=== PATIENT | male | born 1975 | race Caucasian/White ===

== ENCOUNTER 2019-06-29 08:39 | Day surgery (SDC) | payer MEDICAID, SELFPAY ==
[2019-06-26 11:51] VITALS: BMI 36.0
[2019-06-29] VITALS (11 sets, daily range): BP systolic 131–154; BP diastolic 79–97; PULSE 63–82; RESP 10–18; TEMP 36.4–37; O2SAT 92–98
--- NOTE | 2019-06-29 09:01 | PM.HPUD ---
H&P update H&P Update: DATE OF SURGERY/PROCEDURE: 06/29/19 DATE H&P PERFORMED: 06/23/19 H&P UPDATE INFORMATION: H&P completed within last 30 days and No changes to prior documentation PLANNED PROCEDURE: Operation Date: 06/29/19 09:55 Proposed Procedures p Umbilical Hernia Repair 66763 K42.9(Not Applicable) - Johnathon Gonzales MD Full H&P Perinent History: Medical/Surgical History: Medical History (Updated 06/23/19 @ 14:33 by Johnathon Gonzales MD) Chronic low back pain (Acute) COPD (chronic obstructive pulmonary disease) (Acute) Family History: Family History (Updated 06/23/19 @ 14:20 by Noemi Conner LPN) Other Diabetes Denies family history of Anesthesia complication Bleeding disorder Cancer Social History: Social History Smoking and tobacco status: current every day smoker Alcohol intake: current Alcohol intake frequency: few times a week Alcohol type: beer Substance/Drug Use: never Lives independently: Yes Marital status: Single Current occupational status: disabled
--- NOTE | 2019-06-29 09:05 | ANES.PREANES ---
Pre-Anesthetic Assessment Pre-Anesthetic Assessment: Height/Weight: Height 1.7 m Weight 104.326 kg Preop Diagnosis: Umbilical hernia Proposed Procedure: Operation Date: 06/29/19 09:55 Proposed Procedures p Umbilical Hernia Repair [id number] K42.9(Not Applicable) - Johnathon Gonzales MD Last intake: Intake Last Liquid Date 06/28/19 Last Liquid Time 23:00 Last Solid Date 06/28/19 Last Solid Time 23:00 Social: Social History: Alcohol and Tobacco Exam: Pre-Anes Outpt Exam: alert, oriented x 3, clear to auscultation bilaterally and regular rate & rhythm Airway: Submandibular: WNL Cervical ROM: WNL MP: 2 Dentition: Other (OK) History/ROS: No significant history except as noted Pulmonary: Pulmonary: COPD and RIOS CV/HEM: CV/HEM: None reported : : None reported Hepatic: Hepatic: None reported GI: GI: None reported Metabolic: Metabolic: None reported Musc/skel: Musc/skel: None reported Neuropsych: Neuropsych: None reported Anesthetic Plan: ASA status: II Anesthesia: Anesthesia Evaluation and General Risk of > 500 ml blood loss (7ml/kg in children): No PFSH Anesthesia PFSH: Medical History Chronic low back pain (Acute) COPD (chronic obstructive pulmonary disease) (Acute) Surgical History H/O circumcision (Acute) History of removal of cyst (Acute) Scalp Family History Other Diabetes Denies family history of Anesthesia complication Bleeding disorder Cancer Social History Smoking and tobacco status: current every day smoker Alcohol intake: current Alcohol intake frequency: few times a week Alcohol type: beer Substance/Drug Use: never Lives independently: Yes Marital status: Single Current occupational status: disabled Data Anesthesia Cardiac Studies: No Data to Display
[2019-06-29] MEDS: sodium chloride 0.9% 1,000 ML 30 ML IV (09:22)
--- NOTE | 2019-06-29 10:54 | P.OP_ITS ---
Operative Report Date of procedure: 06/29/19 Pre-op Diagnosis: Umbilical hernia Post-op Diagnosis: Incarcerated umbilical hernia containing omentum Procedure Done: Open repair of umbilical hernia Pathology: none sent Surgeon: Johnathon Gonzales Anesthesia: General Estimated blood loss (mL): 10 Condition: stable Disposition: PACU Procedure: The patient was taken to the operating room and intubated under general anesthesia after IV antibiotic had been administered. The abdomen was prepped and draped in a sterile manner. A 2 cm infraumbilical curvilinear incision was made using a 15 blade, a hernial sac dissected out using electrocautery and dissection with hemostats. The hernial sac was opened and omentum was reduced into the peritoneal cavity. Interrupted sutures using 0 Vicryl was used to close the hernial defect without any tension. The s ubcutaneous tissue was approximated using 3-0 Vicryl and skin was closed using running subcuticular 4-0 Monocryl sutures. Dermabond was then applied and 10 mL of 0.5% Marcaine was infiltrated around the incision. A 2 x 2 gauze was then placed within the umbilicus and sterile dressings are applied. The patient was stable throughout the procedure.
[2019-06-29] MEDS: fentaNYL 50 mcg/mL INJ 2mL IVP (11:16)
[2019-06-29] MEDS: HYDROcodone-acetaminophen 5-325 mg Tablet 1 TAB PO (12:00)
== END 2019-06-29 12:29 | disposition home or self-care (01) ==
PROVIDERS: Visit Provider Surgery
PROC: (CPT 49587; principal; 2019-06-29 09:55)
DX: K42.0 Umbilical hernia with obstruction, without gangrene (principal); J44.9 Chronic obstructive pulmonary disease, unspecified; F17.210 Nicotine dependence, cigarettes, uncomplicated; Z83.3 Family history of diabetes mellitus
CPT/HCPCS: 49587; 12345; 96365; J0690; J1100; J2001; J2405; J2704; J2710; J3010; J3490; J7030

== ENCOUNTER 2022-10-09 13:05 | Emergency (ER) | payer MEDICARE, MEDICAID, SELFPAY ==
[2022-10-09 13:15] VITALS: BP 160/91; PULSE 85; RESP 16; TEMP 36.8; O2SAT 97; BMI 34.9
[2022-10-09 14:05] LABS: Basophils % 0.4 %; Eosinophils # 0.2 10^3/uL (0.0-0.8); Eosinophils % 1.6 %; Hematocrit 45.1 % (42.0-52.0); Hemoglobin 15.6 g/dL (11.7-16.6); Lymphocytes # 3.1 10^3/uL (0.8-4.8); Lymphocytes % 31.6 %; Mean Corpuscular HGB Conc 34.6 g/dL (30.0-36.0); Mean Corpuscular Hemoglobin 32.9 pg (28.0-34.0); Mean Corpuscular Volume 95.1 fl (80-94); Mean Platelet Volume 9.6 fL (7.4-10.4); Monocytes # 0.6 10^3/uL (0.2-0.9); Monocytes % 6.3 %; Neutrophils # 5.78 10^3/uL (1.8-7.7); Neutrophils % 59.8 %; Nucleated Red Blood Cells % 0 %; Platelet Count 247 10^3/cmm (130-400); Red Blood Count 4.74 10^6/uL (4.1-5.3); White Blood Count 9.7 10^3/uL (4.0-10.0)
[2022-10-09 14:22] LABS: Alanine Aminotransferase 54 U/L (0-41); Albumin Level 4.4 g/dL (3.5-5.2); Alkaline Phosphatase 80 U/L (40-130); Anion Gap 14.1 (5-19); Aspartate Amino Transferase 38 U/L (0-40); Blood Urea Nitrogen 11 mg/dL (6-20); Calcium 9.5 mg/dL (8.5-10.5); Carbon Dioxide 29 mmol/L (22-29); Chloride 99 mmol/L (98-107); Globulin 2.9 g/dL (1.3-4.6); Glucose 87 mg/dL (65-115); Lipase 41 U/L (13-60); Osmolality Calculated 285 mOsm/kg (285-295); Potassium 4.1 mmol/L (3.5-5.1); Sodium 138 mmol/L (136-145); Total Bilirubin 0.5 mg/dL (0.15-1.2); Total Protein 7.3 g/dL (6.6-8.7)
--- NOTE | 2022-10-09 15:35 | ED_ITS ---
HPI - Abdominal Pain General: Chief Complaint: Abdominal Pain Stated Complaint: possible hernia issues Time Seen by Provider: 10/09/22 15:34 Source: patient Mode of arrival: ambulatory History of Present Illness: 46 yo male presents to the ER with complaints of abdominal pain periumbilical. He previously umbilical hernia repair. Multiple episodes of vomiting and he has discomfort at the site now no bulging. He denies hematochezia melena hematemesis cough cramps. No dysuria urgency or frequency. He thought the vomiting is due to eating some bad food it is resolved at this point. MD elicited complaint: abdominal pain Pertinent past history: none Onset (ago): week(s) Pain Consistency: constant Location: Periumbilical Severity: moderate Quality: sharp Exacerbating factors: nothing Relieving factors: nothing Associated Symptoms: Denies anorexia, belching, bloating, change in bowel habits, change in stool character, chills, coffee ground emesis, constipation, GI cramping, diarrhea, dyspepsia, dysuria, excessive flatus, fever(s), heart burn, hematochezia, hematuria, hematemesis, fecal incontinence, loose stools, melena, nausea, poor appetite, syncope and vomiting Review of Systems Const: Denies: fever(s), chills, fatigue or malaise ENMT: Denies: throat pain, ear or mastoid pain, nasal discharge or nasal congestion Card: Denies: chest pain, irregular heart rhythm, edema or syncope Resp: Denies: dyspnea, productive cough, non-productive cough or wheezing GI: Denies: nausea, vomiting, hematemesis, coffee ground emesis, heartburn, diarrhea, constipation, bloating, GI cramping, belching, excessive flatus, fecal incontinence, change in bowel habits, change in stool character, hematochezia or melena : Denies: dysuria, urinary frequency, urinary urgency or hematuria Skin/Breast: Denies: rash or pruritus PFSH ED PFSH: Medical History (Updated 10/09/22 @ 17:00 by Jose Guadalupe Power DO) Chronic low back pain COPD (chronic obstructive pulmonary disease) Surgical History H/O circumcision History of removal of cyst Scalp History of umbilical hernia repair 06/29/2019 Family History Other Diabetes Denies family history of Anesthesia complication Bleeding disorder Cancer Social History Smoking and tobacco status: current every day smoker Alcohol intake: current Alcohol intake frequency: few times a week Alcohol type: beer Substance/Drug Use: never Lives independently: Yes Marital status: Single Current occupational status: disabled Physical Exam Const: GENERAL APPEARANCE: cooperative and comfortable ORIENTATION/CONSCIOUSNESS: Yes awake, Yes oriented to person, Yes oriented to place and Yes oriented to time HENMT: COMMON NORMALS: normocephalic, atraumatic and hearing grossly normal bilaterally HEAD & SCALP: normocephalic and atraumatic Resp: COMMON NORMALS: normal respiratory effort, No retractions, No use of accessory muscles and clear to auscultation bilaterally AUSCULTATION: clear to auscultation bilaterally Cardio: COMMON NORMALS: regular rate, regular rhythm and No murmurs present (Cardio) RATE: regular rate RHYTHM: regular rhythm GI: COMMON NORMALS: Soft to palpation and No hepatosplenomegaly present AUSCULTATION: Yes normoactive bowel sounds PALPATION: Yes Soft to palpation, Yes Tenderness to palpation present (GI) (Periumbilical), No Guarding due to palpation present (GI) and Yes No hepatosplenomegaly present OTHER: Periumbilical tenderness with supraumbilical rectus diastasis no incarcerated hernias no hernia defect palpable. Superficial mild excoriation at the base of the umbilicus with no signs of erythema no induration no sign of skin infection. Extremity: COMMON NORMALS: normal to inspection, capillary refill normal, no clubbing, cyanosis or edema, no calf tenderness and no pedal edema Neuro: SENSORIUM/ORIENTATION: Yes oriented to person, Yes oriented to place and Yes oriented to time Skin: COMMON NORMALS: no rashes or lesions noted GENERAL SKIN EXAM: no rashes or lesions noted Course Vital Signs: Vital signs: Vital Signs Temperature 98.2 F 10/09/22 13:15 Pulse Rate 85 10/09/22 13:15 Respiratory Rate 16 10/09/22 13:15 Blood Pressure 160/91 10/09/22 13:15 Pulse Oximetry 97 10/09/22 13:15 Oxygen Delivery Me thod Room Air 10/09/22 13:15 MDM - Abdominal Pain Medical Decision Making Patient states he had periumbilical pain since an episodes of vomiting a few weeks ago he does not have any recurrent hernia defect he has a little bit of rectus diastasis which is mild supraumbilical but no hernia defect at this time there is some external excoriation of the umbilicus without signs of infection superficial. We will discharge patient home use pain medications as prescribed if any worsening or change symptoms follow-up primary care. Medical Records I reviewed the patient's medical records. Lab Data I reviewed the patient's lab results. 10/09/22 13:44 10/09/22 13:44 Labs/Radiology: Laboratory Results WBC 9.7 10^3/uL (4.0-10.0) 10/09/22 13:44 RBC 4.74 10^6/uL (4.1-5.3) 10/09/22 13:44 Hgb 15.6 g/dL (11.7-16.6) 10/09/22 13:44 Hct 45.1 % (42.0-52.0) 10/09/22 13:44 MCV 95.1 fl (80-94) H 10/09/22 13:44 MCH 32.9 pg (28.0-34.0) 10/09/22 13:44 MCHC 34.6 g/dL (30.0-36.0) 10/09/22 13:44 RDW 13.0 % (12.1-15.1) 10/09/22 13:44 Plt Count 247 10^3/cmm (130-400) 10/09/22 13:44 MPV 9.6 fL (7.4-10.4) 10/09/22 13:44 Neut % (Auto) 59.8 % 10/09/22 13:44 Lymph % (Auto) 31.6 % 10/09/22 13:44 [place] % (Auto) 6.3 % 10/09/22 13:44 Eos % (Auto) 1.6 % 10/09/22 13:44 Baso % (Auto) 0.4 % 10/09/22 13:44 Neut # (Auto) 5.78 10^3/uL (1.8-7.7) 10/09/22 13:44 Lymph # (Auto) 3.1 10^3/uL (0.8-4.8) 10/09/22 13:44 [place] # (Auto) 0.6 10^3/uL (0.2-0.9) 10/09/22 13:44 Eos # (Auto) 0.2 10^3/uL (0.0-0.8) 10/09/22 13:44 Baso # (Auto) 0.0 10^3/uL (0.0-0.1) 10/09/22 13:44 Nucleated RBC % (auto) 0 % 10/09/22 13:44 Nucleated RBCs # 0.0 /100WBC 10/09/22 13:44 Sodium 138 mmol/L (136-145) 10/09/22 13:44 Potassium 4.1 mmol/L (3.5-5.1) 10/09/22 13:44 Chloride 99 mmol/L (98-107) 10/09/22 13:44 Carbon Dioxide 29 mmol/L (22-29) 10/09/22 13:44 Anion Gap 14.1 (5-19) 10/09/22 13:44 BUN 11 mg/dL (6-20) 10/09/22 13:44 Creatinine 0.6 mg/dL (0.7-1.2) L 10/09/22 13:44 GFR Calculation 145.0 mL/min (90-130) H 10/09/22 13:44 Glucose 87 mg/dL (65-115) 10/09/22 13:44 Calculated Osmolality 285 mOsm/kg (285-295) 10/09/22 13:44 Calcium 9.5 mg/dL (8.5-10.5) 10/09/22 13:44 Total Bilirubin 0.5 mg/dL (0.15-1.2) 10/09/22 13:44 AST 38 U/L (0-40) 10/09/22 13:44 ALT 54 U/L (0-41) H 10/09/22 13:44 Alkaline Phosphatase 80 U/L (40-130) 10/09/22 13:44 Total Protein 7.3 g/dL (6.6-8.7) 10/09/22 13:44 Albumin 4.4 g/dL (3.5-5.2) 10/09/22 13:44 Globulin 2.9 g/dL (1.3-4.6) 10/09/22 13:44 Lipase 41 U/L (13-60) 10/09/22 13:44 Urine Color Yellow (Yellow) 10/09/22 16:27 Urine Appearance Clear (CLEAR) 10/09/22 16:27 Urine pH 6 (5-7) 10/09/22 16:27 Ur Specific Garita 1.020 (1.005-1.030) 10/09/22 16:27 Urine Protein Neg (Negative) 10/09/22 16:27 Urine Glucose (UA) Norm (Normal) 10/09/22 16:27 Urine Ketones Negative (Negative) 10/09/22 16:27 Urine Blood Neg (Negative) 10/09/22 16:27 Urine Nitrate Negative (Negative) 10/09/22 16:27 Urine Bilirubin Neg (Negative) 10/09/22 16:27 Urine Urobilinogen Norm mg/dL (Negative) 10/09/22 16:27 Ur Leukocyte Esterase Negative (Negative) 10/09/22 16:27 Discharge Plan Discharge Patient Disposition: Home Clinical Impression: Strain of abdominal wall Condition: Stable Prescriptions: New diclofenac sodium 75 mg tablet,delayed release (DR/EC) 75 mg PO Q12H PRN (Reason: pain) Qty: 20 0RF Discontinued ibuprofen 200 mg Tablet 400 mg PO Q6H PRN (Reason: Pain) naproxen 500 mg tablet 500 mg PO BID PRN (Reason: Pain) No Action albuterol sulfate [Proventil HFA] 90 mcg/actuation HFA aerosol inhaler 2 puff INHALATION Q4H PRN (Reason: Shortness Of Breath) cephalexin 500 mg capsule 500 mg PO Q6H Rx Instructions: for 10 days (rx filled 10/03/22) lisinopril 10 mg tablet 10 mg PO DAILY Rx Instructions: (not started as of 10/09/22) mupirocin 2 % ointment 1 applic TOPICAL BID Dulera 200-5 mcg/actuation Hfa Aerosol Inhaler 2 puff INHALATION BID PRN (Reason: unknown) Discharge Orders: Discharge ED (Routine); Ordered 10/09/22 Ordered By: Jose Guadalupe Power Discharge Diet: Usual diet Discharge Activity: Increase activity as tolerated Patient Instructions: Opioid Safety, Pain Management Activity Restrictions/Additional Instructions: You are seen today for periumbilical pain. There is no palpable hernia defect. Remainder of your exam is unremarkable and urine was normal. Suspect that with the vomiting you had recently you pulled a muscle in the area at the mesh was previously placed. Use diclofenac 1 every 12 hours as needed. Avoid lifting anything over 20 pounds for the next 7 to 10 days. Coding Level of Care Code ED [employer] Operator for Violette Galarza
[2022-10-09 16:36] LABS: Add Urine Microscopic? NO; Charge for UA Resulting for Rev
[2022-10-09 16:47] LABS: Bilirubin Urine Neg (Negative); Blood Urine Neg (Negative); Glucose Urine UA Norm (Normal); Ketones Urine Negative (Negative); Leukocyte Esterase Urine Negative (Negative); Nitrate Urine Negative (Negative); Protein Urine Neg (Negative); Urine Appearance Clear (CLEAR); Urine Color Yellow (Yellow); Urobilinogen Urine Norm (Negative); pH Urine 6 (5-7)
[2022-10-09 17:14] VITALS: BP 131/110; PULSE 82; O2SAT 95
--- NOTE | 2022-10-12 14:39 | DCPLANNER ---
manager lan called patient due to no primary care physician - patient stated that he sees a physician in [place].
== END 2022-10-09 17:10 | disposition home or self-care (01) ==
PROVIDERS: Emergency Medicine; Emergency Provider Family Medicine
DX: S39.011A Strain of muscle, fascia and tendon of abdomen, initial encounter (principal); J44.9 Chronic obstructive pulmonary disease, unspecified; F17.210 Nicotine dependence, cigarettes, uncomplicated; X58.XXXA Exposure to other specified factors, initial encounter
CPT/HCPCS: 36415; 80053; 81003; 83690; 85025; 99283

== ENCOUNTER → 2022-10-16 12:48 | Outpatient (BNVA) | payer MEDICARE, MEDICAID, SELFPAY | PROVIDERS: PCP Family Medicine; Visit Provider Surgery | DX: R10.9 Unspecified abdominal pain (principal); Z98.890 Other specified postprocedural states; Z87.19 Personal history of other diseases of the digestive system | CPT/HCPCS: 99213 ==